=== PATIENT | male | born 1970 | race African-American/Black ===

== ENCOUNTER 2022-08-18 21:20 | Emergency (ER) | payer OTHER ==
[~2022-08-18] VITALS: Ht 167.6 cm; Wt 72.6 kg
[2022-08-18 21:30] VITALS: BP 152/100; TEMP 97.8
== END 2022-08-18 22:54 | disposition home or self-care (01) ==
LOC: ED 21:20
DX: S00.83XA Contusion of other part of head, initial encounter (principal); J32.0 Chronic maxillary sinusitis; Y04.0XXA Assault by unarmed brawl or fight, initial encounter; Y92.89 Other specified places as the place of occurrence of the external cause
CPT/HCPCS: 36415; 80320; 99283